=== PATIENT | female | born 1945 | race Caucasian/White ===

== ENCOUNTER 2016-07-26 19:07 | Emergency (ER) | payer OTHER ==
--- NOTE | 2016-07-26 20:24 | DIAGNOSTIC IMAGING REPORT ---
PROCEDURE: CT HEAD WITHOUT CONTRAST INDICATION: DIZZINESS TECHNIQUE: Noncontrast axial images with sagittal and coronal reformations. COMPARISON: None. FINDINGS: Brain and ventricles are normal. No evidence of an acute process or hemorrhage. Sinuses and mastoids are normal. IMPRESSION: 1. Negative head CT. 2. Findings discussed with OCTAVIO Elena at [address] scans at this facility use dose modulation, iterative reconstruction, and/or weight-based dosing when appropriate to reduce radiation dose to as low as reasonably achievable.
--- NOTE | 2016-07-26 21:21 | ED NURSING NOTES ---
Clinical Report - Nurses [facility] [address] [place] [address] 07/26/2016 19:09 Patient: INDRA DE PAZ TRIAGE Triage time 19:23. Chief Complaint: ([place] dizzy, fast heart rate, b/p high). Alert. No acute distress. SEPSIS SCREEN: Sepsis Screen: negative. Negative (no infection suspected/documented). ROBINSON COMA SCORE: [place] Coma Scale: 15- eyes open spontaneously (4); best verbal response- oriented x 4 (5); best motor response- obeys commands (6). --19:31 Jeri Pineda R.N. 19:30 07/26/16. BP: 164/82. HR: 77. RR: 16. O2 saturation: 98%. Temp: 97.6 F. Pain level now: 0/10. --19:31 Jeri Pineda R.N. 19:30 07/26/16. BP: 164/82. HR: 77. RR: 16. O2 saturation: 98%. Temp: 97.6 F. Pain level now: 0/10. --19:31 Jeri Pineda R.N. Weight: 90.7 kg stated. Height/Length: 66 inches Per Patient. BMI: 32.3. --19:30 Jeri Pineda R.N. Medications Metoprolol Succinate ER Oral 25mg day . --19:26 Jeri Pineda R.N. AmLODIPine Besylate Oral 2.5 mg, daily. --19:27 Jeri Pineda R.N. Levothyroxine Sodium Oral 12.5, daily. --19:27 Jeri Pineda R.N. Medication/allergy information source: the patient. --19:31 Jeri Pineda R.N. Allergies No Known Drug Allergy. --21:34 Jeri Pineda R.N. History Arrived by private vehicle. Historian: patient and family. Accompanied by family. Primary physician (hannah charles). This is a recurrent problem. (1 months, comes and goes. Has had a cardiac workup.). No difficulty breathing. Treatment PET NUTRITION SPECIALIST: None. PAST MEDICAL HX: Immunizations: status is unknown. The patient has had a hysterectomy. SOCIAL HX: Never smoker. Occasional alcohol use. No drug use. FALL RISK ASSESSMENT: Fall risk assessment completed. No fall risk identified. NUTRITIONAL RISK ASSESSMENT: The nutritional risk assessment revealed no deficiencies. FUNCTIONAL ASSESSMENT: Functional assessment: no impairments noted. LEARNING NEEDS ASSESSMENT: The learning needs assessment revealed no barriers. SKIN INTEGRITY ASSESSMENT: Skin integrity risk assessment completed. No skin integrity risk identified. --19:31 Jeri Pineda R.N. PROBLEMS: Thyroid Disease. Hypertension. --19:29 Jeri Pineda R.N. ADDITIONAL SURGERIES: Hysterectomy. --19:29 Jeri Pineda R.N. Interventions ID band on patient. To room. --19:31 Jeri Pineda R.N. PHYSICAL ASSESSMENT Ambulatory to room. Patient gowned. GENERAL / NEURO / PSYCH: Alert. Oriented X 4. Appears anxious. HEENT: Mucous membranes are pink. RESPIRATORY: Respirations not labored. CVS: Capillary refill less than 2 seconds. GI / : Abdomen nontender. SKIN: Skin intact. Skin is warm and dry. Normal skin turgor. --19:32 Jeri Pineda R.N. NURSING PROGRESS NOTES quality assurance monitor body, pulse oximeter and NIBP monitor placed on patient; playground monitor- Lead II; monitor alarms on. Patient gowned. Head of bed elevated. Two patient identifiers checked. Call light placed in reach. Side rails up x 2. Bed placed in lowest position. Brakes of bed on. Patient ready for evaluation. --19:32 Jeri Pineda R.N. 19:15 07/26/2016 Site #1 started via IV in the right antecubital space with an 20g angiocath; one attempt. Blood drawn: rainbow set. Labeled in the presence of the patient and sent to the lab. Saline lock flushed with 10 mL saline. --19:33 Jeri Pineda R.N. EKG time: (1923). EKG was performed by a tech and shown to the ED physician. --20:01 Jeri Pineda R.N. 20:31 07/26/16. Patient ID band checked for patient name: patient confirmed. Instructions provided to collect clean catch urine and patient verbalized understanding. Clean catch urine collected with return of yellow-colored clear urine; sample sent to lab for urinalysis and culture. Specimen labeled in the presence of the patient. --20:31 Jeri Pineda R.N. 21:34 07/26/2016 Site #1 removed upon discharge. Catheter intact. Bandaid applied. --21:34 Jeri Pineda R.N. DISPOSITION / DISCHARGE 21:26 07/26/16. BP: 146/63. HR: 75. RR: 18. O2 saturation: 97%. Temp: deferred. Pain level now: 0/10. 20:35 07/26/16. BP: 132/60. HR: 73. RR: 16. O2 saturation: 95% on room air. Temp: deferred. Pain level now: 0/10. 19:30 07/26/16. BP: 164/82. HR: 77. RR: 16. O2 saturation: 98%. Temp: 97.6 F. Pain level now: 0/10. --21:26 Jeri Pineda R.N. Condition at departure: improved. No learning barriers present. Discharge instructions provided and reviewed with the patient and spouse. Patient and spouse verbalized understanding. Written instructions provided in Palestinian. The patient was discharged home and accompanied by spouse. She left the Emergency Department ambulatory and via private vehicle. Spouse driving. Medication list reviewed and validated. --21:33 Jeri Pineda R.N. Locked/Released at 07/28/2016 13:41 by Kaitlyn Loo R.N.
--- NOTE | 2016-07-26 21:21 | ED CLINICAL REPORT ---
Clinical Report - Physicians/Mid Levels [facility] [address] [place] [address] 07/26/2016 19:09 Patient: INDRA DE PAZ Time Seen: 1934; initial patient contact, initial documentation, patient care assumed. Arrived- By private vehicle. Historian- patient. HISTORY OF PRESENT ILLNESS Chief Complaint: BLOOD PRESSURE ELEVATED. This started about 1 months ago and is still present. At its maximum, severity described as moderate. When seen in the E.D., it was almost gone. Modifying factors. Not worsened by anything. Not relieved by anything. No headache, fatigue or weakness. (says she feels 'foggy', comes on suddenly, last a few sec and then goes away, the fog feels kind of like dizziness, but not dizzy, just doesn't feel right, lately her bp has been running high, 180/80). Similar symptoms previously: None. Recent medical care: Not recently seen/assessed. REVIEW OF SYSTEMS No fever, sore throat, sinus drainage, nasal congestion or cough. No difficulty breathing, chest pain, abdominal pain, vomiting or diarrhea. No blackouts. All systems otherwise negative, except as recorded above. PAST HISTORY See nurses notes. PROBLEMS: Thyroid Disease. Hypertension. --19:29 Jeri Pineda R.N. ADDITIONAL SURGERIES: Hysterectomy. --19:29 Jeri Pineda R.N. SOCIAL HISTORY Never smoker. Occasional alcohol use. No drug use. No recent travel. Is a local resident. FAMILY HISTORY Negative. ADDITIONAL NOTES The nursing notes have been reviewed with agreement regarding the chief complaint, HPI, ROS, PMH and patient medications and allergies. PHYSICAL EXAM Vital Signs: 07/26/2016 19:30 BP: 164/82. HR: 77. RR: 16. O2 saturation: 98%. Temp: 97.6 F. Pain level now: 0/10. Have been reviewed as normal and appear to be correct. Appearance: Alert. No acute distress. Eyes: Pupils equal, round and reactive to light. Eyes normal inspection. ENT: Ears normal. Nose normal. Pharynx normal. Neck: Normal inspection. Neck supple. CVS: Normal heart rate and rhythm. Heart sounds normal. Pulses normal. Respiratory: No respiratory distress. Breath sounds normal. Chest nontender. Back: Normal inspection. Skin: Skin warm and dry. Normal skin color. No rash. Normal skin turgor. Extremities: Extremities exhibit normal ROM. No lower extremity edema. Neuro: Oriented X 3. No motor deficit. No sensory deficit. LABS, X-RAYS, AND EKG EKG: EKG time: (1923). No acute process. No acute ischemia. Normal EKG. Rate: 74. Normal EKG. interpreted by dr kiran and reviewed by me. The EKG appears to be a good tracing. CT Head: No acute disease. Laboratory Tests: CBC w Diff: (NAVI: 07/26/2016 19:30) ( MsgRcvd 07/26/2016 20:34) Final results Test Result Flag Units (Reference) WHITE BLOOD COUNT 7.5 K/uL (4.5-11.5) RED BLOOD COUNT 5.11 M/uL (4.00-5.20) HEMOGLOBIN 15.4 gm/dL (12.0-16.0) HEMATOCRIT 47.0 H % (36.0-46.0) MEAN CELL VOLUME 92 fL (80-100) MEAN CORPUSCULAR HGB 30 pg (26-34) MEAN CORPUSCULAR HGB CONC 33 g/dL (31-37) RED CELL DISTRIBUTION WIDTH 13.9 % (11.6-14.8) PLATELET COUNT 390 K/uL (150-400) NEUTROPHIL % 53.6 % (50-75) LYMPH % 37.3 % (25-40) MONO % 7.4 % (3-14) EOSINOPHIL % 1.0 % (0-4) BASOPHIL % 0.7 % (0-2) BMP: (NAVI: 07/26/2016 19:30) ( MsgRcvd 07/26/2016 20:48) Final results Test Result Flag Units (Reference) GLUCOSE 120 H mg/dL (70-110) BUN 19 H mg/dL (7-18) CREATININE 1.0 mg/dL (0.6-1.3) Estimated GFR 58.09 mL/min Estimated GFR- >60 mL/min Note: Persistent reduction over 3 months in eGFR<60 mL/min/1.73 m2 defines CKD. Patients with eGFR values>=60 mL/min/1.73 m2 may also have CKD if evidence ofpersistent proteinuria. Additional information may be foundat www.kidney.org. SODIUM 139 mmol/L (136-145) POTASSIUM 4.0 mmol/L (3.5-5.1) CHLORIDE 104 mmol/L (98-107) CARBON DIOXIDE 27 mmol/L (21-32) CALCIUM 8.6 mg/dL (8.5-10.1) CPK 60 U/L (24-260) TROPONIN I <0.05 L ng/mL (0.00-1.5) TROPONIN REFERENCE RANGE:<0.1 NEGATIVE0.1-1.5 INDETERMINANT>1.5 POSITIVE . PROGRESS AND PROCEDURES Patient and spouse counseled in person regarding the patient's stable condition, test results and diagnosis. 2109. Differential Diagnosis: I considered labyrinthitis, vestibular neuronitis and benign positional vertigo as a possible cause of dizziness in this patient. This is a partial list of diagnoses considered. Above considerations are based on history, physical exam, laboratory data, EKG and other information. Differential diagnosis was discussed with patient and patient's spouse. Disposition: Discharged home in good and improved condition (21:20). Condition: good and stable. CLINICAL IMPRESSION Normal exam upon presentation, while in the ED and at discharge. Essential hypertension. INSTRUCTIONS Warnings: GENERAL WARNINGS: Return or contact your physician immediately if your condition worsens or changes unexpectedly, if not improving as expected, or if other problems arise. Specifically return if problem worsens. Follow-up: Follow up with your doctor tomorrow as scheduled. Summary of care provided to patient and family. Understanding of the discharge instructions verbalized by patient. (Electronically signed by Radha Mota A.R.N.P. 07/26/2016 22:08)
--- NOTE | 2016-07-26 21:21 | ED NURSING NOTES ---
Clinical Report - Nurses [facility] [address] [place] [address] 07/26/2016 19:09 Patient: INDRA DE PAZ TRIAGE Triage time 19:23. Chief Complaint: ([place] dizzy, fast heart rate, b/p high). Alert. No acute distress. SEPSIS SCREEN: Sepsis Screen: negative. Negative (no infection suspected/documented). ROBINSON COMA SCORE: [place] Coma Scale: 15- eyes open spontaneously (4); best verbal response- oriented x 4 (5); best motor response- obeys commands (6). --19:31 Jeri Pineda R.N. 19:30 07/26/16. BP: 164/82. HR: 77. RR: 16. O2 saturation: 98%. Temp: 97.6 F. Pain level now: 0/10. --19:31 Jeri Pineda R.N. 19:30 07/26/16. BP: 164/82. HR: 77. RR: 16. O2 saturation: 98%. Temp: 97.6 F. Pain level now: 0/10. --19:31 Jeri Pineda R.N. Weight: 90.7 kg stated. Height/Length: 66 inches Per Patient. BMI: 32.3. --19:30 Jeri Pineda R.N. Medications Metoprolol Succinate ER Oral 25mg day . --19:26 Jeri Pineda R.N. AmLODIPine Besylate Oral 2.5 mg, daily. --19:27 Jeri Pineda R.N. Levothyroxine Sodium Oral 12.5, daily. --19:27 Jeri Pineda R.N. Medication/allergy information source: the patient. --19:31 Jeri Pineda R.N. Allergies No Known Drug Allergy. --21:34 Jeri Pineda R.N. History Arrived by private vehicle. Historian: patient and family. Accompanied by family. Primary physician (hannah charles). This is a recurrent problem. (1 months, comes and goes. Has had a cardiac workup.). No difficulty breathing. Treatment SOCIAL SCIENCES RESEARCH SCIENTIST: None. PAST MEDICAL HX: Immunizations: status is unknown. The patient has had a hysterectomy. SOCIAL HX: Never smoker. Occasional alcohol use. No drug use. FALL RISK ASSESSMENT: Fall risk assessment completed. No fall risk identified. NUTRITIONAL RISK ASSESSMENT: The nutritional risk assessment revealed no deficiencies. FUNCTIONAL ASSESSMENT: Functional assessment: no impairments noted. LEARNING NEEDS ASSESSMENT: The learning needs assessment revealed no barriers. SKIN INTEGRITY ASSESSMENT: Skin integrity risk assessment completed. No skin integrity risk identified. --19:31 Jeri Pineda R.N. PROBLEMS: Thyroid Disease. Hypertension. --19:29 Jeri Pineda R.N. ADDITIONAL SURGERIES: Hysterectomy. --19:29 Jeri Pineda R.N. Interventions ID band on patient. To room. --19:31 Jeri Pineda R.N. PHYSICAL ASSESSMENT Ambulatory to room. Patient gowned. GENERAL / NEURO / PSYCH: Alert. Oriented X 4. Appears anxious. HEENT: Mucous membranes are pink. RESPIRATORY: Respirations not labored. CVS: Capillary refill less than 2 seconds. GI / : Abdomen nontender. SKIN: Skin intact. Skin is warm and dry. Normal skin turgor. --19:32 Jeri Pineda R.N. NURSING PROGRESS NOTES telemetry monitor, pulse oximeter and NIBP monitor placed on patient; court recording monitor- Lead II; monitor alarms on. Patient gowned. Head of bed elevated. Two patient identifiers checked. Call light placed in reach. Side rails up x 2. Bed placed in lowest position. Brakes of bed on. Patient ready for evaluation. --19:32 Jeri Pineda R.N. 19:15 07/26/2016 Site #1 started via IV in the right antecubital space with an 20g angiocath; one attempt. Blood drawn: rainbow set. Labeled in the presence of the patient and sent to the lab. Saline lock flushed with 10 mL saline. --19:33 Jeri Pineda R.N. EKG time: (1923). EKG was performed by a tech and shown to the ED physician. --20:01 Jeri Pineda R.N. 20:31 07/26/16. Patient ID band checked for patient name: patient confirmed. Instructions provided to collect clean catch urine and patient verbalized understanding. Clean catch urine collected with return of yellow-colored clear urine; sample sent to lab for urinalysis and culture. Specimen labeled in the presence of the patient. --20:31 Jeri Pineda R.N. 21:34 07/26/2016 Site #1 removed upon discharge. Catheter intact. Bandaid applied. --21:34 Jeri Pineda R.N. DISPOSITION / DISCHARGE 21:26 07/26/16. BP: 146/63. HR: 75. RR: 18. O2 saturation: 97%. Temp: deferred. Pain level now: 0/10. 20:35 07/26/16. BP: 132/60. HR: 73. RR: 16. O2 saturation: 95% on room air. Temp: deferred. Pain level now: 0/10. 19:30 07/26/16. BP: 164/82. HR: 77. RR: 16. O2 saturation: 98%. Temp: 97.6 F. Pain level now: 0/10. --21:26 Jeri Pineda R.N. Condition at departure: improved. No learning barriers present. Discharge instructions provided and reviewed with the patient and spouse. Patient and spouse verbalized understanding. Written instructions provided in Gabonese. The patient was discharged home and accompanied by spouse. She left the Emergency Department ambulatory and via private vehicle. Spouse driving. Medication list reviewed and validated. --21:33 Jeri Pineda R.N. Locked/Released at 07/28/2016 13:41 by Kaitlyn Loo R.N.
--- NOTE | 2016-07-26 21:21 | ED ORDER SUMMARY ---
..... Patient: INDRA DE PAZ OrderSheet [facility] VisitID: [id number] [place] [address] 71y, F Registration Date/Time: 07/26/2016 ORDER SHEET Weight: 90.7 kg (stated) Allergies: No Known Drug Allergy GENERAL ORDERS: Fixed Route Bus Operator (Continuous) (19:48 07/26/2016 HBivens A.R.N.P.) (20:00 SRoberts R.N.) CT Head wo Cont Urgent (19:48 07/26/2016 HBivens A.R.N.P.) (Ack 20:02 NHouse ER Tech1) (20:02 RFay) CBC w Diff Urgent (19:48 07/26/2016 HBivens A.R.N.P.) (20:00 SRoberts R.N.) BMP Urgent (19:48 07/26/2016 HBivens A.R.N.P.) (20:00 SRoberts R.N.) CPK Urgent (19:48 07/26/2016 HBivens A.R.N.P.) (20:00 SRoberts R.N.) Troponin-I Urgent (19:48 07/26/2016 HBivens A.R.N.P.) (20:00 SRoberts R.N.) EKG - ER Stat (20:15 07/26/2016 NHouse ER Tech1 per protocol) (20:15 NHouse ER Tech1) MEDICATION ORDERS: IV FLUIDS: IV Saline Lock (19:48 07/26/2016 HBivens A.R.N.P.) (20:00 SRoberts R.N.) ORDER SHEET NOTES: [Electronically signed by Radha Mota.R.N.P. (22:08 07/26/2016)] [Electronically signed by Kaitlyn Loo R.N. (13:41 07/28/2016)] [Electronically locked/signed by Kaitlyn Loo R.N. (13:41 07/28/2016)]
--- NOTE | 2016-07-26 21:21 | ED ORDER SUMMARY ---
..... Patient: INDRA DE PAZ OrderSheet [facility] VisitID: [id number] [place] [address] 71y, F Registration Date/Time: 07/26/2016 ORDER SHEET Weight: 90.7 kg (stated) Allergies: No Known Drug Allergy GENERAL ORDERS: Buckle Wire Inserter (Continuous) (19:48 07/26/2016 HBivens A.R.N.P.) (20:00 SRoberts R.N.) CT Head wo Cont Urgent (19:48 07/26/2016 HBivens A.R.N.P.) (Ack 20:02 NHouse ER Tech1) (20:02 RFay) CBC w Diff Urgent (19:48 07/26/2016 HBivens A.R.N.P.) (20:00 SRoberts R.N.) BMP Urgent (19:48 07/26/2016 HBivens A.R.N.P.) (20:00 SRoberts R.N.) CPK Urgent (19:48 07/26/2016 HBivens A.R.N.P.) (20:00 SRoberts R.N.) Troponin-I Urgent (19:48 07/26/2016 HBivens A.R.N.P.) (20:00 SRoberts R.N.) EKG - ER Stat (20:15 07/26/2016 NHouse ER Tech1 per protocol) (20:15 NHouse ER Tech1) MEDICATION ORDERS: IV FLUIDS: IV Saline Lock (19:48 07/26/2016 HBivens A.R.N.P.) (20:00 SRoberts R.N.) ORDER SHEET NOTES: [Electronically signed by Radha Mota.R.N.P. (22:08 07/26/2016)] [Electronically signed by Kaitlyn Loo R.N. (13:41 07/28/2016)] [Electronically locked/signed by Kaitlyn Loo R.N. (13:41 07/28/2016)]
--- NOTE | 2016-07-28 13:41 | ED DISCHARGE INSTRUCTIONS ---
Patient: INDRA DE PAZ General Instructions [facility] VisitID: [id number] [place] [address] 71y, F Registration Date/Time: 07/26/2016 Normal exam upon presentation, while in the ED and at discharge. Essential hypertension. INSTRUCTIONS Warnings: GENERAL WARNINGS: Return or contact your physician immediately if your condition worsens or changes unexpectedly, if not improving as expected, or if other problems arise. Specifically return if problem worsens. Follow-up: Follow up with your doctor tomorrow as scheduled. Summary of care provided to patient and family. Understanding of the discharge instructions verbalized by patient. ADDITIONAL INFORMATION Normal Exam [6Yr - Adult] Based on your or your child's exam today, there are no signs of illness or injury. Be assured that the symptoms that worried you are normal. They do not suggest any illness requiring testing or treatment at this time. Home Care: You (or your child) can return to normal activities and diet. If you or your child have new or unusual symptoms not already discussed today, contact the doctor. Follow Up with the doctor for the next routine appointment. For more information: For childrens health information: www.kidshealth.org For adult health information: www.[facility].org High Blood Pressure --Established High Blood Pressure (Hypertension) is a chronic disease. The cause is unknown in most cases. It can usually be controlled with lifestyle changes and/or medicines. Symptoms of high blood pressure may include headache, dizziness, visual changes, chest pain and shortness of breath. Sometimes it causes no symptoms at all. However, even if there are no symptoms, untreated high blood pressure increases the risk of heart attack, also known as acute myocardial infarction, or AMI, and stroke. It is a serious health risk and should not be ignored. A normal blood pressure is 120/80 or less. The first (top) number is the "systolic" pressure. The second (bottom) number is the "diastolic" pressure. Hypertension exists when either the top number is 140 or higher, OR the bottom number is 90 or higher on repeated measurements. Home Care: All patients with high blood pressure should do the following to lower their pressure. If you are on medicines, then these methods may reduce or eliminate your need for medicines in the future. Begin a weight loss program if you are overweight. Reduce your salt intake. Avoid high salt foods (olives, pickles, smoked meats, salted potato chips, etc.). Do not add salt to your food at the table. Use only small amounts of salt when cooking. Begin an exercise program. Discuss with your doctor what type of exercise program would be best for you. It doesn't have to be difficult. Even brisk walking for 20 minutes three times a week is a good form of exercise. Avoid medicines which contain heart stimulants. This includes many cold and sinus decongestant pills and sprays as well as diet pills. Check the warnings about hypertension on the label. Stimulants such as amphetamine or cocaine could be lethal for someone with hypertension. Never take these. Limit your caffeine intake or switch to caffeine-free products. Stop smoking. If you are a long-time smoker, this can be hard. Enroll in a stop-smoking program to improve your chance of success. Learning how to handle stress better is an important part of any program to lower blood pressure. Learn about relaxation methods such as meditation, yoga or biofeedback. If medicines were prescribed, take them exactly as directed. Missing doses may cause your blood pressure get out of control. Consider buying an automatic blood pressure machine (available at most pharmacies). Use this to monitor your blood pressure at home and report the results to your doctor. Follow Up: Regular visits to your own physician for blood pressure checks and medicine adjustment is an important part of your care. Make a follow-up appointment as directed by our staff. Get Prompt Medical Attention if any of the following occur: Chest pain or shortness of breath Severe headache Throbbing or rushing sound in the ears Nosebleed Sudden severe abdominal pain Extreme drowsiness, confusion or fainting Dizziness or vertigo (dizziness with spinning sensation) Weakness of an arm or leg or one side of the face Difficulty with speech or vision You have been given the following additional information: Normal Exam, (Child) (Adult) Hypertension, Established (Electronically signed by Radha Mota A.R.N.P. 07/26/2016 22:08)
--- NOTE | 2016-07-28 13:41 | ED MAR SUMMARY ---
..... Medication Administration Record [facility] [address] [place], [place] [id number] Patient: CARL DE PAZN Abiel Visit ID: [id number] 71y, F Weight: 90.7 kg Height/Length: 66 in BMI: 32.3 ALLERGIES: No Known Drug Allergy
--- NOTE | 2016-07-28 13:41 | ED MAR SUMMARY ---
..... Medication Administration Record [facility] [address] [place], [place] [id number] Patient: CARL DE PAZN Abiel Visit ID: [id number] 71y, F Weight: 90.7 kg Height/Length: 66 in BMI: 32.3 ALLERGIES: No Known Drug Allergy
--- NOTE | 2016-07-28 13:42 | ED MED RECONCILIATION SUMMARY ---
Patient: INDRA DE PAZ Medication Reconciliation Report [facility] VisitID: [id number] [address] [place] [address] 71y, F Registration Date/Time: 07/26/2016 Weight: 90.7 kg Height/Length: 66 in. BMI: 32.3 ALLERGIES: No Known Drug Allergy The patient's Home Medications are listed below: THE FOLLOWING MEDICATIONS NEED TO BE RECONCILED: AmLODIPine Besylate Oral 2.5 mg, daily Levothyroxine Sodium Oral 12.5, daily Metoprolol Succinate ER Oral 25mg day The source(s) of the original Home Medication information: patient The following Medications were given to the patient in the Emergency Department: None. The following Medications were prescribed to the patient: None.
--- NOTE | 2016-07-28 13:42 | ED MED RECONCILIATION SUMMARY ---
Patient: INDRA DE PAZ Medication Reconciliation Report [facility] VisitID: [id number] [address] [place] [place] [address] 71y, F Registration Date/Time: 07/26/2016 Weight: 90.7 kg Height/Length: 66 in. BMI: 32.3 ALLERGIES: No Known Drug Allergy The patient's Home Medications are listed below: THE FOLLOWING MEDICATIONS NEED TO BE RECONCILED: AmLODIPine Besylate Oral 2.5 mg, daily Levothyroxine Sodium Oral 12.5, daily Metoprolol Succinate ER Oral 25mg day The source(s) of the original Home Medication information: patient The following Medications were given to the patient in the Emergency Department: None. The following Medications were prescribed to the patient: None.
== END 2016-07-26 21:30 | disposition home or self-care (01) ==
LOC: ED SRH 19:07
DX: I10 Essential (primary) hypertension (principal); Z79.899 Other long term (current) drug therapy
CPT/HCPCS: 90047; 90616; 92610; 95059